=== PATIENT | female | born 1980 | race Caucasian/White ===

== ENCOUNTER 2022-11-10 08:00 | Outpatient (RCR) | payer BC, SELFPAY ==
--- NOTE | 2022-09-29 11:03 | PTOPEVAL1 ---
Assessment and note entered by Radha Funetes, PT Evaluation Information Assessment Status Evaluation Diagnosis pain in left foot, tarsal tunnel syndrome Onset ~ month Subjective Information Reports a year ago July thinks while dancing something happened but then it went away. But nothing happened in this recent month. Pain will be at different places on her foot. Last night was toes, today is heel. Pain will at times radiat up lower leg. Aggravating factors: Driving in the car and sitting 3 hours was painful. 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 Shoe ohara not restricted Reported Pain Level Pain Score 4: Self Report Assessment PT Clinical Summary Pt presents with complaints of left foot pain that has persisted the past month. Reports no traumatic incident recently but recalls a year ago an injury to this ankle. Evaluation shoes significant ankle/foot kinematic issues including bilateral high arches, supinated forefoot, decreased passive motion of tarsals and foot complex, tone and adhesions to anterior tibialis, and decreased ROM and strength. Pt will greatly benefit from physical therapy to address deficits and return to prior level of function without pain . Plan of Care Interventions Electrical Stimulation,Hot Pack/Cold Pack,Manual Therapy,Neuro Re-education,Paraffin Bath,Patient/ Caregiver Educati,Therapeutic Activities, Therapeutic Exercise,Ultrasound PT Services Indicated Yes Treatment Frequency and 1-2x weekly x 6 weeks Duration These treatments will address the objective and functional deficits as defined above. The patient will be advanced safely and appropriately in order for the patient to progress towards his/her prior level of function. Additional exercises will be introduced and as well as a comprehensive home exercise program upon discharge, if needed, ?to ensure carryover of functional gains achieved in the clinic. This treatment plan has been reviewed and agreement upon by the patient.
--- NOTE | 2022-09-29 11:04 | OPREHPOC ---
Outpatient Therapy Plan of Care This is a Multidisciplinary Plan of Care that may contain components documented by all disciplines (PT, OT, and ST.) PT Problem 1 PT Problem #1 Knowledge Deficit PT Goal 1 Goal Pt will be independent in HEP Pt will verbalize understanding of diagnosis and prognosis Target Visit 8 PT Problem 2 PT Problem #2 Pain PT Goal 1 Goal Pt will report lowest pain at 0/10 Pt will report highest pain at 3/10 Target Visit 8 PT Goal 2 Goal Pt will report resolutoin of pain Target Visit 12 PT Problem 3 PT Problem #3 Impaired Range of Motion PT Goal 1 Goal Pt will demo passive ROM dorsiflexion L ankle 0-10 Target Visit 8 PT Goal 2 Goal Pt will demo active dorsiflexion 0-8 degrees Target Visit 12 PT Problem 4 PT Problem #4 Impaired Strength PT Goal 1 Goal Pt will demo equal strength bilat ankles Target Visit 8 PT Goal 2 Goal Pt will demo 5/5 strength left calf Target Visit 12
--- NOTE | 2022-11-10 08:54 | PTOPDC ---
Assessment and note entered by Radha Fuentes, PT Assessment Status Discharge Diagnosis pain in left foot, tarsal tunnel syndrome Onset ~ month Subjective Information Also worked [employer] which is a 24 hour event which she was on her feet walking most of the time. Did not have her supportive shoes and forgot to wear her arch supports in her old tennis shoes . Was really swollen last night and pain was very high. Used a hot compress on her foot. Pain still radiates longterm up lower leg, cont to have numbness and tingling at times. Self-perceived improvement: 30-40% Reported Pain Level Pain Score 6: Self Report Assessment PT Clinical Summary Pt has presented consistently for physical therapy for her left ankle pain. She has been complaint in her instructions with applying arch supports, changing to more supportive shoes, and with her home exercises. She also shows improvement in range and strength however cont to have increased pain with any increased activity, and when in other shoe ohara. She reports 25-30% improvement overall. Pt would benefit from referral to presiding steward vs orthopaedist for next level of care as patient has met max benefit for physical therpay at this time, thus is being discharged. Plan of Care PT Services Indicated No
== END 2022-11-10 09:12 | disposition home or self-care (01) ==
LOC: ANHHIPT 08:00
PROVIDERS: PCP Family Medicine; Visit Provider Family Medicine
DX: M79.672 Pain in left foot (principal); G57.52 Tarsal tunnel syndrome, left lower limb
CPT/HCPCS: 97014; 97032; 97035; 97110; 97112; 97140; 97161; 97530; 97750; G0283

== ENCOUNTER 2024-12-25 07:44 | Day surgery (SDC) | payer OTHER, SELFPAY ==
[2024-12-19 13:08] VITALS: BMI 36.0
[2024-12-20 09:27] VITALS: BMI 35.9
[2024-12-25 08:24] VITALS: BP 117/85; PULSE 72; RESP 16; TEMP 36.4; O2SAT 99; BMI 35.3
--- NOTE | 2024-12-25 09:08 | WPDANESEPPF ---
Anes - Initial Pre Proc Eval Procedure: Operation Date: 12/25/24 09:30 Proposed Procedures p Screening Colonoscopy - Ben Siddiqui MD Date/Time: 12/25/24 09:08 Surgeon: Ben Siddiqui MD Pre Op Diagnosis: Encounter for screening for malignant neoplasm of Patient Data Age: 44 Gender: F Height: 1.63 m Weight: 93.4 kg Last Vital Signs Temp 36.4 C L 12/25/24 08:24 Pulse 72 12/25/24 08:24 Resp 16 12/25/24 08:24 BP 117/85 12/25/24 08:24 Pulse Ox 99 12/25/24 08:24 O2 Del Method Room Air 12/25/24 08:24 Allergies Allergy/AdvReac Type Severity Reaction Status Date / Time latex Allergy Unknown RASH Verified 12/25/24 08:22 Home Medications ?Medication ?Instructions ?Recorded ?Confirmed ?Type No Home Medications 12/20/24 12/20/24 History Patient hx anesthesia problems: none Family hx anesthesia problems: none Results Review: All pre-operative results and documents have been reviewed as part of the pre-operative evaluation. [facility] Past Medical History Medical History Achilles tendon tear Preoperative clearance Left foot pain Tarsal tunnel syndrome, left lower limb Surgical History Surgical History History of hysterectomy Family History Family History Father No problems noted. Mother Diabetes mellitus Hypertension Sibling No problems noted. Sibling No problems noted. Sibling No problems noted. Grandparent Cancer breast and lung cancer. Ovarian. Social History Social History Smoking packs per day: 0.5 Smoking cigarettes per day: 10.0 Years smoked: 15 Smoking pack-years: 7.50 Smoking status: Former smoker Tobacco type: cigarettes Second hand tobacco smoke exposure: No Smoking end date: 02/08/09 Alcohol intake: current Drinks per week: 4 Substance use: never Substance use type: does not use Lack of Transportation: No Lack of Food: Never True Current Housing: I Have Housing Concerned About Future Housing: No Difficulty Paying Gas/Electric Bills: No Difficulty Paying for Meds: No Currently Unemployed: No Education: Bachelor's Degree Difficulty w/ Childcare or Family Care: No Living arrangements: with family Occupation/Education: occupation 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 Informed Consent: The patient's anesthetic plan and its attendant risks and benefits were discussed with the patient/family/POA. Questions were solicited and answers provided to the satisfaction of the patient/family/POA.
[2024-12-25] MEDS: LACTATED RINGERS 1,000 ML 150 ML IV CONT (09:16)
--- NOTE | 2024-12-25 09:36 | PM.IMHP ---
H&P: HPI History of Present Illness Date/Time: 12/25/24 09:36 Chief Complaint: Screening colonoscopy Narrative: This is the patient's 2nd screening colonoscopy. There are no GI symptoms and there is no family history of colorectal cancer. Review of Systems Review of Systems: All systems reviewed & are unremarkable except as noted in HPI and below PMFSH Past Medical History Medical History Achilles tendon tear Preoperative clearance Left foot pain Tarsal tunnel syndrome, left lower limb Surgical History Surgical History History of hysterectomy Family History Family History Father No problems noted. Mother Diabetes mellitus Hypertension Sibling No problems noted. Sibling No problems noted. Sibling No problems noted. Grandparent Cancer breast and lung cancer. Ovarian. Social History Social History Smoking packs per day: 0.5 Smoking cigarettes per day: 10.0 Years smoked: 15 Smoking pack-years: 7.50 Smoking status: Former smoker Tobacco type: cigarettes Second hand tobacco smoke exposure: No Smoking end date: 02/08/09 Alcohol intake: current Drinks per week: 4 Substance use: never Substance use type: does not use Lack of Transportation: No Lack of Food: Never True Current Housing: I Have Housing Concerned About Future Housing: No Difficulty Paying Gas/Electric Bills: No Difficulty Paying for Meds: No Currently Unemployed: No Education: Bachelor's Degree Difficulty w/ Childcare or Family Care: No Living arrangements: with family Occupation/Education: occupation Additional occupation/education comments: [employer] Gender identity (if verbalized by the patient): Female Sexual Orientation (if Verbalized by the Patient): Straight or Heterosexual Spiritual care concerns: No Meds Home Medications and Allergies Home Medications ?Medication ?Instructions ?Recorded ?Confirmed ?Type No Home Medications 12/20/24 12/20/24 History Allergies Allergy/AdvReac Type Severity Reaction Status Date / Time latex Allergy Unknown RASH Verified 12/25/24 08:22 Vital Signs Vital Signs - 24 hr 12/25/24 08:24 Temperature 97.5 F L Pulse Rate 72 Respiratory Rate 16 Blood Pressure 117/85 Pulse Oximetry 99 Oxygen Delivery Room Air Exam Const: General: cooperative and healthy appearing Resp: Effort & Inspection: normal respiratory effort and able to speak in complete sentences Auscultation: clear to auscultation bilaterally Cardio: Rate: regular rate Rhythm: regular rhythm GI: Inspection: normal to inspection GI Palp: No No hepatosplenomegaly present Auscultation: normal bowel sounds Rectal Exam: deferred Skin: General skin exam: normal color Psych: Appearance: grossly normal Mental Status: mental status grossly normal Assessment and Plan Assessment and plan (1) Encounter for screening colonoscopy: Code(s): Z12.11 - Encounter for screening for malignant neoplasm of colon Status: Acute Assessment and Plan: The patient is deemed a good candidate for the procedure. Consent signed. Will proceed.
[2024-12-25] MEDS: SIMETHICONE ORAL SUSPENSION 20 MG/0.3 ML 30 ML BOTTLE 0.6 ML IRRIGATION (09:51)
[2024-12-25 10:00] VITALS: BP 107/77; PULSE 62; RESP 15; O2SAT 99
[2024-12-25 10:10] VITALS: BP 96/64; PULSE 67; RESP 16; O2SAT 99
[2024-12-25 10:20] VITALS: BP 98/67; PULSE 68; RESP 18; O2SAT 100
--- NOTE | 2024-12-25 12:43 | WPDANESPN ---
Anes - Prog Note Post-Op Date/Time: 12/25/24 12:43 Cardiovascular status: normal Respiratory status: normal Airway patency: baseline Mental status: baseline Post-Op hydration status: normal Vital Signs: Last Vital Signs Temp 36.4 C L 12/25/24 08:24 Pulse 68 12/25/24 10:20 Resp 18 12/25/24 10:20 BP 98/67 L 12/25/24 10:20 Pulse Ox 100 12/25/24 10:20 O2 Del Method Room Air 12/25/24 10:20 Pain Score (VAS): 0 I/O: Intake & Output 12/24/24 12/25/24 12/25/24 23:59 07:59 15:59 Intake Total 150 Balance 150 Post-procedural complaints: none Patient Feedback: Patient satisfied with anesthetic care.
--- NOTE | 2024-12-25 12:44 | WPDANESPN ---
Anes - Prog Note Post-Op Date/Time: 12/25/24 12:44 Cardiovascular status: normal Respiratory status: normal Airway patency: baseline Mental status: baseline Post-Op hydration status: normal Vital Signs: Last Vital Signs Temp 36.4 C L 12/25/24 08:24 Pulse 68 12/25/24 10:20 Resp 18 12/25/24 10:20 BP 98/67 L 12/25/24 10:20 Pulse Ox 100 12/25/24 10:20 O2 Del Method Room Air 12/25/24 10:20 Pain Score (VAS): 0 I/O: Intake & Output 12/24/24 12/25/24 12/25/24 23:59 07:59 15:59 Intake Total 150 Balance 150 Post-procedural complaints: none Patient Feedback: Patient satisfied with anesthetic care.
== END 2024-12-25 10:48 | disposition home or self-care (01) ==
PROVIDERS: Referring Provider Nurse Practitioner Family; Visit Provider Internal Medicine Gastroenterology
PROC: 0DJD8ZZ Inspection of Lower Intestinal Tract, Via Natural or Artificial Opening Endoscopic (ICD-10-PCS; CPT 45378; principal; 2024-12-25 09:30)
DX: Z12.11 Encounter for screening for malignant neoplasm of colon (principal)
CPT/HCPCS: 45378